=== PATIENT | male | born 1960 | race Caucasian/White ===

== ENCOUNTER → 2021-07-09 | Day surgery (SDC) | payer OTHER ==
[~2021-07-09] VITALS: Ht 172.7 cm; Wt 159.0 kg
[~2021-07-09] MED LIST: IV RINGERS,LACTATED 1000ML 1,000 ML IV SCH; LIDOCAINE 2% PF 5 ML VIAL. ONE; PROPOFOL 10 MG/ML (20ML) VIAL. IV ONE
[2021-07-09 08:02] VITALS: BP 147/70
[2021-07-09 09:19] VITALS: BP 117/61
--- NOTE | 2021-07-10 00:18 | HP ---
DATE OF SERVICE: 07/09/2021 ADMIT DATE: 07/09/2021 REASON: History of polyps, colorectal screening. HISTORY OF PRESENT ILLNESS: A 60-year-old male whose past medical history is significant for sleep apnea, obesity, history of colonic polyps, is seen for interval colon exam. Previous colon exam 5 years ago did reveal diverticular disease, colonic polyps and hemorrhoids. Bowel habits are regular without diarrhea or constipation. There has been no melena and/or hematochezia. Family history is unrevealing for colon cancer. He is otherwise without additional complaints. PAST MEDICAL HISTORY: Sleep apnea, diverticulosis, colon polyps. ALLERGIES: None. MEDICATIONS: None. FAMILY HISTORY: Significant for breast cancer with aunt, [place] with father, hypertension with father, colon polyp with mother, colon cancer with maternal grandmother. SOCIAL HISTORY: He is a drinker and former smoker. PAST SURGICAL HISTORY: ____ surgery. REVIEW OF SYSTEMS: Per records. PHYSICAL EXAMINATION: VITAL SIGNS: Reveals temperature 97.4, pulse 81, respiratory rate 20. LUNGS: Clear. CARDIOVASCULAR: Reveals an S1, S2, without S3, S4 or appreciable murmur. ABDOMEN: Reveals a soft abdomen. Normoactive bowel sounds without appreciable hepatosplenomegaly. EXTREMITIES: Reveals no cyanosis, clubbing or edema. IMPRESSION: History of colonic polyps. Surveillance exam is recommended at this time. Risks and benefits of procedure including risk of hemorrhage and perforation requiring operation were discussed. The patient is willing to proceed at this time. ALEJANDRO/PEDRO DR: Luis TID: [id number]
== END | disposition home or self-care (01) ==
LOC: SURG 07:27
PROVIDERS: ATTEND Internal Medicine Gastroenterology
DX: Z12.11 Encounter for screening for malignant neoplasm of colon (principal); K64.0 First degree hemorrhoids; K62.1 Rectal polyp; K57.30 Diverticulosis of large intestine without perforation or abscess without bleeding; K63.89 Other specified diseases of intestine; E66.9 Obesity, unspecified; G47.30 Sleep apnea, unspecified; Z86.010 Personal history of colon polyps; Z87.891 Personal history of nicotine dependence; Z79.899 Other long term (current) drug therapy; Z98.890 Other specified postprocedural states; Z80.3 Family history of malignant neoplasm of breast; Z82.49 Family history of ischemic heart disease and other diseases of the circulatory system; Z80.0 Family history of malignant neoplasm of digestive organs
CPT/HCPCS: 45380; 88305; J2704

== ENCOUNTER → 2021-08-27 | Day surgery (SDC) | payer OTHER ==
[~2021-08-27] VITALS: Ht 172.7 cm; Wt 159.0 kg
[~2021-08-27] MED LIST changes: -LIDOCAINE 2% PF 5 ML VIAL. ONE; +OMEP10SU2 PO
[2021-08-27 08:52] VITALS: BP 137/66
[2021-08-27 09:47] VITALS: BP 124/58
== END | disposition home or self-care (01) ==
LOC: SURG 08:32
PROVIDERS: ATTEND Internal Medicine Gastroenterology
DX: R13.10 Dysphagia, unspecified (principal); K31.89 Other diseases of stomach and duodenum; G47.30 Sleep apnea, unspecified; Z87.891 Personal history of nicotine dependence; Z98.890 Other specified postprocedural states
CPT/HCPCS: 43235; 43450; J2704